=== PATIENT | male | born 1965 | race Caucasian/White ===

== ENCOUNTER 2019-12-04 09:02 | Outpatient (CLI) | payer OTHER, SELFPAY ==
--- NOTE | 2019-12-04 09:36 | XRR_ITS ---
PROCEDURE INFORMATION: Exam: XR Right Knee Exam date and time: 12/04/2019 9:57 AM Age: 54 years old Clinical indication: Right; Patient HX: Chronic right knee pain; Additional info: R knee pain TECHNIQUE: Imaging protocol: XR Right knee. Views: Frontal and lateral views. COMPARISON: No relevant prior studies available. FINDINGS: Bones/joints: Normal. Soft tissues: Normal. Other findings: e XR/XR knee RT 1-2V [id number] IMPRESSION: No acute findings.
--- NOTE | 2019-12-04 09:36 | XRR_ITS ---
PROCEDURE INFORMATION: Exam: XR Lumbosacral Spine, 2 or 3 Views Exam date and time: 12/04/2019 9:57 AM Age: 54 years old Clinical indication: Patient HX: C/O chronic low back pain TECHNIQUE: Imaging protocol: XR of the lumbosacral spine, 3 views. Other technique: AP, lateral and spot lateral views of the lumbar spine are submitted. COMPARISON: No relevant prior studies available. FINDINGS: Vertebrae: Lumbar spine vertebral body marginal osteophytes are noted at multiple levels. No acute fracture.No destructive bony process identified. Soft tissues: Unremarkable. XR/XR lumbar spine 2-3V* [id number] IMPRESSION: 1. Degenerative changes as above. 2. No acute lumbar spinal bony abnormality identified.
== END 2019-12-04 09:03 | disposition home or self-care (01) ==
PROVIDERS: PCP Family Medicine; Visit Provider Family Medicine
DX: M54.9 Dorsalgia, unspecified (principal); M25.561 Pain in right knee
CPT/HCPCS: 72100; 73560

== ENCOUNTER 2020-03-24 09:53 | Outpatient (CLI) | payer OTHER, SELFPAY ==
--- NOTE | 2020-03-24 10:03 | XR_ITS ---
WS: [id number] TECHNIQUE: 2 views of the left hand CLINICAL INFORMATION: ARTHRITIS COMPARISON: None. FINDINGS: Normal metacarpals. Normal MCP joint. Metacarpal heads are normal in appearance. Mild degenerative na rrowing involving the fifth PIP joint. IP joints are otherwise well preserved. Radiocarpal joint: Mild narrowing Carpal bones: Normal. Tiny radiopaque foreign body overlying the fourth middle phalanx. Additional foreign body in the dors al hand soft tissues between the second third metacarpal XR/XR hand LT 2V [id number] IMPRESSION: Mild degenerative arthritis left hand described above.
--- NOTE | 2020-03-24 10:03 | XR_ITS ---
WS: [id number] TECHNIQUE: 2 views of the right hand CLINICAL INFORMATION: ARTHRITIS COMPARISON: None. FINDINGS: Normal metacarpals. Normal MCP joint. Metacarpal heads are normal in appearance. Mild degenerative ar thritis IP joint narrowing involving the third fourth and fifth PIP and DIP joints. Radiocarpal joint: Mild narrowing Carpal bones: Normal. XR/XR hand RT 2V [id number] IMPRESSION: Mild degenerative arthritis as described above
== END 2020-03-24 09:54 | disposition home or self-care (01) ==
LOC: RAD 09:59
PROVIDERS: PCP Family Medicine; Visit Provider Dermatology
DX: Z02.71 Encounter for disability determination (principal); M19.042 Primary osteoarthritis, left hand; M19.041 Primary osteoarthritis, right hand
CPT/HCPCS: 73120

== ENCOUNTER → 2020-11-25 10:05 | Outpatient (BNVA) | payer OTHER, SELFPAY | PROVIDERS: PCP Family Medicine; Visit Provider Psychiatry & Neurology Psychiatry | DX: F41.1 Generalized anxiety disorder (principal); F33.42 Major depressive disorder, recurrent, in full remission; Z79.899 Other long term (current) drug therapy | CPT/HCPCS: 80061; 83036 ==

== ENCOUNTER 2020-11-30 17:27 | Inpatient (IN) | payer MEDICAID, SELFPAY ==
[2020-11-30 17:31] VITALS: BP 158/101; PULSE 82; RESP 18; O2SAT 97; BMI 33.6
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
[2020-11-30 18:18] LABS: Add Urine Microscopic? NO; Charge for UA Resulting for Rev
[2020-11-30 18:19] LABS: Bilirubin Urine Neg (Negative); Blood Urine Neg (Negative); Glucose Urine UA Norm (Normal); Ketones Urine Negative (Negative); Leukocyte Esterase Urine Negative (Negative); Nitrate Urine Negative (Negative); Protein Urine Neg (Negative); Urine Appearance Clear (CLEAR); Urine Color Yellow (Yellow); Urobilinogen Urine Norm (Negative); pH Urine 5 (5-7)
[2020-11-30 18:28] LABS: Amphetamines Screen Urine Negative (Negative); Barbiturates Screen Urine Negative (Negative); Benzodiazepines Screen Urine Negative (Negative); Cocaine Screen Urine Negative (Negative); Opiate Screen Urine Negative (Negative); PCP Screen Urine Negative (Negative); THC Screen Urine Negative (Negative)
[2020-11-30 19:34] LABS: Basophils # 0.1 10^3/uL (0.0-0.1); Basophils % 0.6 %; Eosinophils # 0.2 10^3/uL (0.0-0.8); Eosinophils % 1.9 %; Hematocrit 44.3 % (42.0-52.0); Hemoglobin 14.7 g/dL (11.7-16.6); Lymphocytes # 2.3 10^3/uL (0.8-4.8); Lymphocytes % 23.2 %; Mean Corpuscular HGB Conc 33.2 g/dL (30.0-36.0); Mean Corpuscular Hemoglobin 30.3 pg (28.0-34.0); Mean Corpuscular Volume 91.3 fL (80-94); Mean Platelet Volume 10.1 fL (7.4-10.4); Monocytes # 0.5 10^3/uL (0.2-0.9); Monocytes % 5.5 %; Neutrophils # 6.71 10^3/uL (1.8-7.7); Neutrophils % 68.5 %; Nucleated Red Blood Cells % 0 %; Platelet Count 221 10^3/cmm (130-400); Red Blood Count 4.85 10^6/uL (4.1-5.3); Red Cell Distribution Width 14.1 % (12.1-15.1); White Blood Count 9.8 10^3/uL (4.0-10.0)
[2020-11-30 19:55] LABS: Alanine Aminotransferase 19 U/L (0-41); Albumin Level 4.6 g/dL (3.5-5.2); Alcohol Level 166 mg/dL (0-10); Alkaline Phosphatase 65 IU/L (40-130); Aspartate Amino Transferase 31 U/L (0-40); Blood Urea Nitrogen 5 mg/dL (6-20); Calcium 8.7 mg/dL (8.5-10.5); Carbon Dioxide 16 mmol/L (22-29); Chloride 100 mmol/L (98-107); Globulin 3.8 g/dL (1.3-4.6); Glucose 96 mg/dL (65-115); Osmolality Calculated 275 mOsm/kg (285-295); Sodium 134 mmol/L (136-145); Total Bilirubin 0.8 mg/dL (0.15-1.2); Total Protein 8.4 g/dL (6.6-8.7)
[2020-11-30 19:56] LABS: Acetaminophen < 5.0 ug/mL (10-30); Salicylate < 0.3 mg/dL (3-10)
[2020-11-30 22:15] VITALS: BP 146/94; PULSE 73; RESP 18; TEMP 36.8; O2SAT 95
[2020-11-30 22:20] VITALS: BP 136/94; PULSE 70; RESP 16; O2SAT 98
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
[2020-11-30] MEDS: trazodone 50 mg Tablet PO (22:51)
[2020-11-30] MEDS: acetaminophen 325 mg Tablet 650 MG PO (22:54)
[2020-12-01 06:00] VITALS: BP 143/85; PULSE 84; RESP 15; TEMP 36.8; O2SAT 95
[2020-12-01] MEDS: folic acid 1 mg Tablet PO (08:34)
[2020-12-01] MEDS: thiamine 100 mg Tablet PO (08:34)
[2020-12-01] MEDS: multivitamin therapeutic Tablet 1 TAB PO (08:34)
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
--- NOTE | 2020-12-01 13:50 | PC.NURSE ---
Patient came to the nurses station requesting Tylenol for his headache. Rates pain 5/10. PRN Tylenol administered.
[2020-12-01] MEDS: fluoxetine 20 mg Capsule 40 MG PO (13:58)
[2020-12-01] MEDS: acetaminophen 325 mg Tablet 650 MG PO ×2 (13:58→20:44)
[2020-12-01 14:00] VITALS: BP 145/100; PULSE 74; RESP 16; TEMP 37.9; O2SAT 96
[2020-12-01] MEDS: trazodone 50 mg Tablet PO (20:44)
[2020-12-01 22:00] VITALS: BP 148/100; PULSE 59; RESP 18; TEMP 36.9; O2SAT 94
[2020-12-02 06:00] VITALS: BP 139/80; PULSE 59; RESP 18; TEMP 36.8; O2SAT 94
[2020-12-02] MEDS: fluoxetine 20 mg Capsule 40 MG PO (08:29)
[2020-12-02] MEDS: multivitamin therapeutic Tablet 1 TAB PO (08:29)
[2020-12-02] MEDS: folic acid 1 mg Tablet PO (08:29)
[2020-12-02] MEDS: thiamine 100 mg Tablet PO (08:29)
--- NOTE | 2020-12-02 10:21 | PM.NDC ---
Diagnoses at Discharge Discharge Diagnosis (1) Alcohol intoxication: Status: Acute (2) Depression: Status: Acute Qualifiers: Active/Remission status: currently active Depression Type: major depressive disorder Major depression episode severity: severe Major depression recurrence: recurrent Psychotic features: without psychotic features Qualified Code(s): F33.2 - Major depressive disorder, recurrent severe without psychotic features (3) Alcohol dependence, continuous: Status: Acute (4) Generalized anxiety disorder: Status: Acute Reason for Visit Reason for Visit: ETOH; ANGER; ANXIETY Hospital Course Hospital Course 55 year old male presented to the emergency department for irritability, anger, depressive symptoms in the context of feeling betrayed by his girlfriend who had allowed a stranger to stay in their trailer while he was being taken away by police after an argument with the stranger. Patient was denying any suicidal ideation and no active depressive symptoms at the time of initial evaluation but reported his frustration about his current situation. Patient was restarted on his home medication with no reports of any medication side effects. Patient reports that he had been decreasing the amount of his alcohol use but continues to report drinking a minimum of 4-5 beers daily but occasionally more. Patient participate in unit milieu with no reports of any behavioral disturbances. Patient was not suicidal or homicidal at the time of discharge and did not endorse any psychiatric symptoms and did not appear to pose an imminent threat of harm to self or others. Low to moderate risk of harm to self and others given no current suicidal or homicidal ideation and no current endorsement of any psychiatric symptoms although patient's risk may be elevated if he continues to abuse alcohol leading to unexpected, impulsive behavior. Risk mitigation included psychiatric hospitalization, restarting medication for medication stabilization, recommendation to abstain from the use of alcohol and any substances as well as the need for post discharge substance counseling/treatment in addition to being compliant with his medication and medication management follow-up. Patient communicated his understanding of the above discharge recommendations to include abstaining from the use of alcohol and other substances as well as the need for ongoing counseling targeting the development of more adaptive coping strategies in order to further mitigate his risk of harm to self and others. Involuntary Hold Information 96 Hour Hold: 96 Hour Involuntary Admission: No Mental Status Exam MSE Comments: Sitting in the day room appropriately groomed and dressed, calm, cooperative, good eye contact Psychomotor activity is neither increased nor decreased, no agitation Speech is normal rate and volume, spontaneous, fair articulation, not pressured I feel good, congruent affect, not labile Alert and oriented to person, place, time, situation Memory and concentration appear to be intact per interview Thought process, linear, no flight of ideas Thought content, no delusions, no hallucinations, no suicidal or homicidal ideation Insight and judgment appear to be fair to intact Discharge Data Vitals: Last Vital Signs Temp 98.2 F 12/02/20 06:00 Pulse 59 L 12/02/20 06:00 Resp 18 12/02/20 06:00 BP 139/80 12/02/20 06:00 Pulse Ox 94 12/02/20 06:00 Discharge Plan Discharge Patient Disposition: Home Condition: Stable Prescriptions: New Vitamin B-1 (mononitrate) 100 mg Tablet 100 mg PO DAILY 30 Days RF: 0 Continued Tylenol Extra Strength 500 mg Tablet 1,500 mg PO PRN RF: 0 fluoxetine 40 mg capsule 40 mg PO DAILY RF: 0 trazodone 150 mg tablet 150 mg PO BEDTIME RF: 0 Discharge Orders: Discharge Order (Routine); Ordered 12/02/20 Ordered By: Malorie Pride Referrals: [facility] [Outside] - 12/09/20 8:30 am (Dr Almaguer over the phone) [facility] [Outside] Discharge Diet: Regular Discharge Activity: Resume usual activity Patient Instructions: Opioid Safety Discharge Attestations NPU Time Spent in Discharge Care*: greater than 30 min Status at Discharge: Cognitive status at discharge: cognitively intact, Behavioral status at discharge: cooperative, Functional status at discharge: independent ambulation Overall status at discharge: patient is back to baseline Coding Level of Care Code Acute g [facility] note Diagnoses Alcohol intoxication F10.929 Depression F33.2 Active/Remission status: currently active Depression Type: major depressive disorder Major depression episode severity: severe Major depression recurrence: recurrent Psychotic features: without psychotic features Alcohol dependence, continuous F10.20 Generalized anxiety disorder F41.1
[2020-12-02 10:44] VITALS: BP 139/80; PULSE 59; RESP 18; TEMP 36.8; O2SAT 94
== END 2020-12-02 11:50 | disposition home or self-care (01) | DRG 885 ==
LOC: ER 19:57 → NP 21:55
PROVIDERS: Admitting Provider Psychiatry & Neurology Psychiatry; Emergency Provider Family Medicine; PCP Family Medicine; Visit Provider Psychiatry & Neurology Psychiatry
DX: F33.2 Major depressive disorder, recurrent severe without psychotic features (principal); F41.1 Generalized anxiety disorder; F10.229 Alcohol dependence with intoxication, unspecified; Y90.6 Blood alcohol level of 120-199 mg/100 ml; R45.850 Homicidal ideations; Z63.0 Problems in relationship with spouse or partner
CPT/HCPCS: 80053; 80306; 80307; 81003; 85025; 99285

== ENCOUNTER 2021-04-13 06:00 | Outpatient (RCR) | payer SELFPAY ==
[2020-12-01 14:53] VITALS: BP 142/84; BMI 35.0
== END 2021-04-21 23:59 | disposition home or self-care (01) ==
LOC: SPT 06:00
PROVIDERS: PCP Family Medicine Adult Medicine; Referring Provider Family Medicine Adult Medicine; Visit Provider Family Medicine Adult Medicine
DX: M25.512 Pain in left shoulder (principal); M25.511 Pain in right shoulder; M15.9 Polyosteoarthritis, unspecified; S16.1XXD Strain of muscle, fascia and tendon at neck level, subsequent encounter; X50.3XXD Overexertion from repetitive movements, subsequent encounter
CPT/HCPCS: 97162

== ENCOUNTER 2021-04-22 06:00 | Outpatient (RCR) | payer OTHER, MEDICAID, SELFPAY ==
[2020-12-01 14:53] VITALS: BP 142/84; BMI 35.0
== END 2021-05-22 23:59 | disposition home or self-care (01) ==
LOC: SPT 06:00
PROVIDERS: PCP Family Medicine Adult Medicine; Referring Provider Family Medicine Adult Medicine; Visit Provider Family Medicine Adult Medicine
DX: M15.9 Polyosteoarthritis, unspecified (principal); M25.512 Pain in left shoulder; M25.511 Pain in right shoulder; X50.3XXA Overexertion from repetitive movements, initial encounter; S16.1XXA Strain of muscle, fascia and tendon at neck level, initial encounter
CPT/HCPCS: 97110

== ENCOUNTER 2021-05-23 06:00 | Outpatient (RCR) | payer MEDICAID, SELFPAY ==
[2020-12-01 14:53] VITALS: BP 142/84; BMI 35.0
== END 2021-06-22 23:59 | disposition home or self-care (01) ==
LOC: SPT 06:00
PROVIDERS: PCP Family Medicine Adult Medicine; Referring Provider Family Medicine Adult Medicine; Visit Provider Family Medicine Adult Medicine
DX: M15.9 Polyosteoarthritis, unspecified (principal); M25.512 Pain in left shoulder; M25.511 Pain in right shoulder; X50.3XXA Overexertion from repetitive movements, initial encounter; S16.1XXA Strain of muscle, fascia and tendon at neck level, initial encounter; X58.XXXA Exposure to other specified factors, initial encounter
CPT/HCPCS: 97110

== ENCOUNTER → 2021-05-28 08:35 | Outpatient (BNVA) | payer MEDICAID, SELFPAY ==
[2020-12-01 14:53] VITALS: BP 142/84; BMI 35.0
== END ==
PROVIDERS: PCP Family Medicine Adult Medicine; Visit Provider Psychiatry & Neurology Psychiatry
DX: F33.42 Major depressive disorder, recurrent, in full remission (principal); F41.1 Generalized anxiety disorder; F10.20 Alcohol dependence, uncomplicated
CPT/HCPCS: 99214

== ENCOUNTER → 2021-07-30 14:51 | Outpatient (BNVA) | payer MEDICAID, SELFPAY ==
[2020-12-01 14:53] VITALS: BP 142/84; BMI 35.0
== END ==
PROVIDERS: PCP Family Medicine Adult Medicine; Visit Provider Family Medicine Adult Medicine
DX: M25.512 Pain in left shoulder (principal)
CPT/HCPCS: 73030

== ENCOUNTER → 2021-09-03 09:30 | Outpatient (BNVA) | payer MEDICAID, SELFPAY ==
[2020-12-01 14:53] VITALS: BP 142/84; BMI 35.0
== END ==
PROVIDERS: PCP Family Medicine Adult Medicine; Visit Provider Psychiatry & Neurology Psychiatry
DX: F33.42 Major depressive disorder, recurrent, in full remission (principal); F41.1 Generalized anxiety disorder; F10.20 Alcohol dependence, uncomplicated
CPT/HCPCS: 99214

== ENCOUNTER 2021-10-07 23:19 | Emergency (ER) | payer MEDICAID, SELFPAY ==
[2020-12-01 14:53] VITALS: BP 142/84; BMI 35.0
--- NOTE | 2021-10-07 23:20 | W.ED.SOB ---
HPI - SOB/Dyspnea General: Chief Complaint: Shortness of Breath/Dyspnea Stated Complaint: SOB Time Seen by Provider: 10/07/21 23:20 History of Present Illness: HPI Narrative: Mr Rivera is a 56-year-old gentleman with history of alcohol abuse presenting to the emergency department due to shortness of breath. He endorses chronic cough for a number of months however over the past 3 to 4 days has become more productive and today he had marked shortness of breath with exertion while he was getting ready for bed. He denies similar episodes in the past. He denies history of tobaccoism. Overall intensity of symptoms was moderate to severe. Course is now improved after EMS treatment. He does endorse new environmental exposure with his cat. No other specific changes in health, exacerbating, or alleviating factors identified. Onset (ago): day(s) Timing: progressively worsening Severity: moderate Treatment prior to arrival: bronchodilator Review of Systems General: Reports: 10 or more systems reviewed and unremarkable except in HPI and below PFSH ED PFSH: Medical History Alcohol use disorder, severe, dependence Generalized anxiety disorder GERD (gastroesophageal reflux disease) Muscle strain of shoulder region Osteoarthritis involving multiple joints on both sides of body Participant in health and wellness plan Psychiatric care Repetitive strain injury of neck Severe dental caries Shoulder pain, left Tinea corporis Family History Father Diabetes started at age 72 Social History Smoking and tobacco status: never smoked Alcohol intake: current Alcohol intake frequency: few times a month Marital status: Life Partner Number of children: 1 Number of grandchildren: 1 Current occupational status: unemployed and disabled Physical Exam Const: COMMON NORMALS: alert GENERAL APPEARANCE: cooperative and well developed HENMT: COMMON NORMALS: normocephalic and atraumatic HEAD & SCALP: normocephalic and atraumatic Eye: COMMON NORMALS: conjunctivae normal CONJUNCTIVA: Yes conjunctivae normal SCLERA: sclerae normal Neck/C-Spine: COMMON NORMALS: supple GENERAL: Yes trachea midline Resp: EFFORT & INSPECTION: Yes able to speak in complete sentences AUSCULTATION: diminished lung sounds Cardio: COMMON NORMALS: regular rate and regular rhythm RATE: regular rate RHYTHM: regular rhythm GI: COMMON NORMALS: Soft to palpation PALPATION: Yes Soft to palpation and No Tenderness to palpation present (GI) PERCUSSION: normal to percussion Extremity: GENERAL: Yes normal exam except as noted and No edema Neuro: COMMON NORMALS: moves all extremities SENSORIUM/ORIENTATION: Yes alert and No Orientation impaired Psych: COMMON NORMALS: mental status grossly normal and Normal thought process present THOUGHT PROCESS: Normal thought process present Course ED course: - Patient was seen and evaluated by me at bedside - Patient placed on cardiac monitors, IV access obtained - Initial evaluation notable for exam as above - Labs and xrays personally interpreted by me -RT treatment ordered. Antibiotic dose here ordered. Fluids ordered - Labs notable for no leukocytosis, normal hemoglobin. ABG with mild hypoxemia. Metabolic panel with evidence of dehydration. Delta troponin is negative. D-dimer mildly elevated. COVID test negative for - Imaging notable for bibasilar opacities, no pneumothorax. CT angio without evidence of pulmonary embolism. - Upon serial reexamination after treatment the patient was improved - Based on patient history, evaluation, and testing as interpreted the most likely cause of the patient's condition is dehydration and shortness of breath with likely exacerbation of underlying lung disease/atypical pneumonia - The results of ED evaluation were discussed with the patient including prescriptions and/or symptomatic cares (if applicable) including appropriate and responsible use, followup plan, and return precautions. The patient verbalized understanding and felt safe for discharge. - Patient discharged in satisfactory condition. Note: Click bubbles or prepopulated brar in note writing are used for assistance with data collection and billing and are inherently more limited than narrative and other text portions of this note. Please use narrative for additional clinical history and defer to narrative/free test for any case of contradictory information. If information appears in only free text or click bubble it should be considered present or absent as reported. Please contact note grant writer for clarifications of clinical information or contradictory information. MDM is a brief summary, contradictory or erroneous seeming information should be clarified and full note should be reviewed. Vital Signs: Vital signs: Vital Signs Temperature 97.7 F 10/07/21 23:21 Pulse Rate 69 10/08/21 04:21 Respiratory Rate 15 10/08/21 04:21 Blood Pressure 112/58 10/08/21 04:21 Pulse Oximetry 95 10/08/21 04:21 MDM - SOB/Dyspnea Medical Decision Making 56-year-old gentleman presenting with shortness of breath. No acute pathology identified on ED evaluation. Improved with treatment. Satisfactory for outpatient management. Medical Records I reviewed the patient's medical records. Lab Data I reviewed the patient's lab results. : 10/07/21 23:02 10/07/21 23: Labs/Radiology: Radiology Impressions Chest X-Ray 10/07/21 23:28 IMPRESSION: 1. Cardiomegaly. 2. Bilateral hilar lower lobe atelectasis versus infiltrate. Chest CTA 10/08/21 01:08 IMPRESSION: No pulmonary embolus or other acute pathology in the chest. Laboratory Results WBC 7.8 10^3/uL (4.0-10.0) 10/07/21: RBC 4.09 10^6/uL (4.1-5.3) L 10/07/21: Hgb 12.8 g/dL (11.7-16.6) 10/07/21: Hct 38.0 % (42.0-52.0) L 10/07/21: MCV 92.9 fl (80-94) 10/07/21: MCH 31.3 pg (28.0-34.0) 10/07/21: MCHC 33.7 g/dL (30.0-36.0) 10/07/21 23: RDW 13.7 % (12.1-15.1) 10/07/21: Plt Count 190 10^3/cmm (130-400) 10/07/21: MPV 11.0 fL (7.4-10.4) H 10/07/21: Neut % (Auto) 44.2 % 10/07/21 23: Lymph % (Auto) 39.9 % 10/07/21: [place] % (Auto) 8.8 % 10/07/21: Eos % (Auto) 6.0 % 10/07/21: Baso % (Auto) 0.8 % 10/07/21: Neut # (Auto) 3.45 10^3/uL (1.8-7.7) 10/07/21: Lymph # (Auto) 3.1 10^3/uL (0.8-4.8) 10/07/21 23: [place] # (Auto) 0.7 10^3/uL (0.2-0.9) 10/07/21 23: Eos # (Auto) 0.5 10^3/uL (0.0-0.8) 10/07/21 23: Baso # (Auto) 0.1 10^3/uL (0.0-0.1) 10/07/21 23: Nucleated RBC % (auto) 0 % 10/07/21 23: Nucleated RBCs # 0.0 /100WBC 10/07/21 23: D-Dimer 0.70 ug/mIFEU (0-0.59) H 10/07/21: Specimen Type Arterial 10/07/21: Sample Site Radial, left 10/07/21: ABG pH 7.37 (7.35-7.45) 10/07/21: ABG pCO2 39.8 mmHg (35-45) 10/07/21: ABG pO2 69.3 mmHg (80.0-100.0) L 10/07/21: ABG HCO3 22.9 mmol/L (22-26) 10/07/21: ABG Base Excess -2.2 mmol/L (-2.0-2.0) L 10/07/21: [place] Test Pos 10/07/21: Hematocrit 39.4 % (42-52) L 10/07/21: Hgb O2 Saturation 90.7 % (95-100) L 10/07/21: Carboxyhemoglobin 1.5 %THgb (0.4-20.1) 10/07/21: Methemoglobin 1.0 % (0.4-1.5) 10/07/21: Total Hemoglobin 12.8 g/dL (14-18) L 10/07/21: O2 Delivery Device None 10/07/21: FiO2 21.0 % 10/07/21 23: Income Tax Return Preparer ID [place] 10/07/21 23: Sodium 128 mmol/L (136-145) L 10/07/21:02 Potassium 3.6 mmol/L (3.5-5.1) 10/07/21 23:02 Chloride 92 mmol/L (98-107) L 10/07/21 23:02 Carbon Dioxide 21 mmol/L (22-29) L 10/07/21 23:02 Anion Gap 18.6 (5-19) 10/07/21 23:02 BUN 10 mg/dL (6-20) 10/07/21 23:02 Creatinine 0.8 mg/dL (0.7-1.2) 10/07/21 23:02 GFR Calculation 100.7 mL/min (90-130) 10/07/21 23:02 Glucose 94 mg/dL (65-115) 10/07/21 23:02 Calculated Osmolality 265 mOsm/kg (285-295) L 10/07/21 23:02 Lactic Acid 1.7 mmol/L (0.5-2.2) 10/07/21 23:53 Calcium 8.6 mg/dL (8.5-10.5) 10/07/21 23:02 Total Bilirubin 0.6 mg/dL (0.15-1.2) 10/07/21 23:02 AST 44 U/L (0-40) H 10/07/21 23:02 ALT 33 U/L (0-41) 10/07/21 23:02 Alkaline Phosphatase 56 IU/L (40-130) 10/07/21 23:02 Troponin T Baseline 6 ng/L (0-15) 10/07/21 23:02 Troponin T 120 Minute 6.00 ng/L (0-15) 10/08/21 00:44 Delta Troponin T 0 ABS# (0-10) 10/08/21 00:44 C-Reactive Protein 3.0 mg/L (0.0-4.9) 10/08/21 00:44 NT-Pro-B Natriuret Pep 85 pg/mL (0-125) 10/07/21 23:02 Total Protein 7.6 g/dL (6.6-8.7) 10/07/21 23:02 Albumin 4.5 g/dL (3.5-5.2) 10/07/21 23:02 Globulin 3.1 g/dL (1.3-4.6) 10/07/21 23:02 Procalcitonin 0.12 ng/mL (0-0.5) 10/08/21 00:44 Coronavirus 229E (PCR) Not detected (NOT DETECT) 10/07/21 23:50 SARS-CoV-2 (PCR) Not detected (NOT DETECT) 10/07/21 23:50 Discharge Plan Discharge Patient Disposition: Home Clinical Impression: Shortness of breath, Dehydration Condition: Stable Prescriptions: New doxycycline hyclate 100 mg tablet 100 mg PO BID 10 Days Qty: 20 0RF albuterol sulfate 90 mcg/actuation HFA aerosol inhaler 2 inh inhalation Q4H PRN (Reason: shortness of breath or wheezing) Qty: 8.5 0RF cetirizine 10 mg tablet 10 mg PO DAILY Qty: 30 0RF No Action clotrimazole-betamethasone 1-0.05 % cream 1 applic topical BID Qty: 15 0RF Rx Instructions: Apply to left lower leg affected area twice a day trazodone 150 mg tablet 150 mg PO BEDTIME Qty: 30 11RF fluoxetine 40 mg capsule 40 mg PO DAILY Qty: 30 11RF acamprosate 333 mg tablet,delayed release (DR/EC) See Rx Instructions .ROUTE .COMPLEX Qty: 90 11RF Rx Instructions: Take 2 tablets in the morning and 1 tablet at night. meloxicam 7.5 mg tablet 7.5 mg PO BIDWMEAL Qty: 30 3RF Rx Instructions: 1 tablet twice a day with food. methocarbamol 750 mg tablet See Rx Instructions .ROUTE .COMPLEX Qty: 60 1RF Dose Instruction: TAKE 1 TABLET BY MOUTH THREE TIMES DAILY FOR MUSCLE SPASM Rx Instructions: TAKE 1 TABLET BY MOUTH THREE TIMES DAILY FOR MUSCLE SPASM Tylenol Extra Strength 500 mg Tablet 1,500 mg PO PRN 0RF Discharge Orders: Discharge ED (Routine); Ordered 10/08/21 Ordered By: Nash Benjamin Referrals: Harshil Mcgovern MD [Primary Care Provider] - Discharge Diet: Usual diet Discharge Activity: Increase activity as tolerated Patient Instructions: Dehydration (ED), Shortness of Breath (ED) Activity Restrictions/Additional Instructions: Thank you for visiting the emergency department. You were seen and evaluated for shortness of breath. The exact cause of your symptoms is unclear. Initially on chest x-ray it appeared that you have mild pneumonia however on CT scan this is not seen. This may be related to increased inflammation secondary to allergies. He will be given a prescription for antibiotics in case there is atypical infection, steroids, and an inhaler. Additionally for possible allergic reaction we will prescribe cetirizine. Please follow-up with your primary care provider. Please return to the emergency department for worsening symptoms or anything else that you are concerned about a family needs emergency department evaluation. Coding Level of Care Code ED [employer] Engineer for Manuel Matthew
[2021-10-07 23:21] VITALS: BP 115/72; PULSE 65; RESP 17; TEMP 36.5; O2SAT 94; BMI 37.5
--- NOTE | 2021-10-07 23:28 | XRR_ITS ---
PROCEDURE INFORMATION: Exam: XR Chest Exam date and time: 10/07/2021 11:39 PM Age: 56 years old Clinical indication: Cough and shortness of breath; Patient HX: C/O cough with SOB x several days TECHNIQUE: Imaging protocol: XR of the chest. Views: 1 view. COMPARISON: CR Chest 1 [place] [id number] 01/25/2019 11:39 PM FINDINGS: Lungs: Bilateral hilar lower lobe atelectasis versus infiltrate. Pleural spaces: Unremarkable. No pleural effusion. No pneumothorax. Heart/Mediastinum: Cardiomegaly. Bones/joints: Unremarkable. XR/XR chest 1V portable [id number] IMPRESSION: 1. Cardiomegaly. 2. Bilateral hilar lower lobe atelectasis versus infiltrate.
--- NOTE | 2021-10-07 23:28 | PC.NURSE ---
Pt reports drinking 15 beers today and is a chronic alcoholic.
--- NOTE | 2021-10-07 23:29 | ECG_ITS ---
[facility] Test Date: 2021-10-07 Pat Name: Jose Rivera Department: Room: Gender: Male House Wirer: : 1965 Requested By: Nash Benjamin Order Number: [id number] Berta MD: Michael Rodríguez M.D. Measurements Intervals Drew Rate: 63 P: 42 TX: 180 QRS: 60 QRSD: 96 T: 51 QT: 409 QTc: 420 Interpretive Statements SINUS RHYTHM Compared to ECG 01/25/2019 22:47:00 No significant changes Electronically Signed On 10-08-2021 17:19:12 CDT by Michael Rodríguez M.D. [email or web address]
[2021-10-07 23:38] LABS: ABG PCO2 39.8 mmHg (35-45); ABG PH Result 7.37 (7.35-7.45); Arterial Blood Gas Hematocrit 39.4 % (42-52); Base Excess ABG -2.2 mmol/L (-2.0-2.0); Blood Gas Allen Test Pos; Blood Gas Operator Identificat WALCI; Blood Gas Sample Site Radial, left; Blood Gas Sample Type Arterial; Carboxyhemoglobin 1.5 %THgb (0.4-20.1); HCO3 ABG 22.9 mmol/L (22-26); HGB O2 Sat 90.7 % (95-100); PO2 ABG 69.3 mmHg (80.0-100.0); Total Hemoglobin 12.8 g/dL (14-18)
[2021-10-07 23:42] VITALS: PULSE 65; RESP 16; O2SAT 95
[2021-10-07] MEDS: ipratropium-albuterol 3 mL Neb INHALATION (23:42)
[2021-10-07 23:46] VITALS: PULSE 61
[2021-10-07 23:56] LABS: Basophils # 0.1 10^3/uL (0.0-0.1); Basophils % 0.8 %; Eosinophils # 0.5 10^3/uL (0.0-0.8); Hemoglobin 12.8 g/dL (11.7-16.6); Lymphocytes # 3.1 10^3/uL (0.8-4.8); Lymphocytes % 39.9 %; Mean Corpuscular HGB Conc 33.7 g/dL (30.0-36.0); Mean Corpuscular Hemoglobin 31.3 pg (28.0-34.0); Mean Corpuscular Volume 92.9 fl (80-94); Monocytes # 0.7 10^3/uL (0.2-0.9); Monocytes % 8.8 %; Neutrophils # 3.45 10^3/uL (1.8-7.7); Neutrophils % 44.2 %; Nucleated Red Blood Cells % 0 %; Platelet Count 190 10^3/cmm (130-400); Red Blood Count 4.09 10^6/uL (4.1-5.3); Red Cell Distribution Width 13.7 % (12.1-15.1); White Blood Count 7.8 10^3/uL (4.0-10.0)
[2021-10-08] VITALS (8 sets, daily range): BP systolic 84–112; BP diastolic 44–65; PULSE 57–77; RESP 15–21; O2SAT 91–95
[2021-10-08] LABS: Troponin(5th) Baseline 6 ng/L (0-15)
[2021-10-08 00:08] LABS: Alanine Aminotransferase 33 U/L (0-41); Albumin Level 4.5 g/dL (3.5-5.2); Alkaline Phosphatase 56 IU/L (40-130); Anion Gap 18.6 (5-19); Aspartate Amino Transferase 44 U/L (0-40); Blood Urea Nitrogen 10 mg/dL (6-20); Calcium 8.6 mg/dL (8.5-10.5); Carbon Dioxide 21 mmol/L (22-29); Chloride 92 mmol/L (98-107); Globulin 3.1 g/dL (1.3-4.6); Glomerular Filtration Rate 100.7 mL/min (90-130); Glucose 94 mg/dL (65-115); NT Pro B Type Natriuretic Pept 85 pg/mL (0-125); Osmolality Calculated 265 mOsm/kg (285-295); Potassium 3.6 mmol/L (3.5-5.1); Sodium 128 mmol/L (136-145); Total Bilirubin 0.6 mg/dL (0.15-1.2); Total Protein 7.6 g/dL (6.6-8.7)
[2021-10-08 00:15] LABS: Lactic Sepsis W/Reflex 1.7 mmol/L (0.5-2.2)
[2021-10-08] MEDS: sodium chloride 0.9% 1,000 ML 999 ML IV ×2 (00:21→02:45)
--- NOTE | 2021-10-08 01:08 | CTR_ITS ---
PROCEDURE INFORMATION: Exam: CTA Chest With Contrast Exam date and time: 10/08/2021 1:34 AM Age: 56 years old Clinical indication: Abnormal findings; Abnormal diagnostic tests; Elevated d-dimer; Cough and shortness of breath; Patient HX: C/O cough with SOB x several days. Hypotensive with elevated d dimer. ; Additional info: SOB, elevated ddimer, hypotension TECHNIQUE: Imaging protocol: Computed tomographic angiography of the chest with contrast. 3D rendering (Not supervised by radiologist): MIP and/or 3D reconstructed images were created by the technologist. Radiation optimization: All CT scans at this facility use at least one of these dose optimization techniques: automated exposure control; mA and/or kV adjustment per patient size (includes targeted exams where dose is matched to clinical indication); or iterative reconstruction. Contrast material: OMNI 350; Contrast volume: 50 ml; Contrast route: INTRAVENOUS (IV); COMPARISON: CTA Chest-[place]ulmonary [place] [id number] 01/26/2019 12:10 AM RADIATION DOSE METRICS: Total DLP (mGy-cm): 574.79 FINDINGS: Pulmonary arteries: Normal. No pulmonary emboli. Aorta: Unchanged mildly ectatic ascending aorta measuring 3.7 cm in diameter. Lungs: Unremarkable. No consolidation. No masses. Pleural spaces: Unremarkable. No pneumothorax. No pleural effusion. Heart: Unremarkable. No cardiomegaly. No pericardial effusion. Lymph nodes: Unremarkable. No enlarged lymph nodes. Bones/joints: Unremarkable. No acute fracture. Soft tissues: Unremarkable. CT/CT angio chest PE protcl [id number] IMPRESSION: No pulmonary embolus or other acute pathology in the chest.
[2021-10-08 01:14] LABS: Troponin 5 2HR Delta 0 ABS# (0-10)
[2021-10-08] MEDS: cefTRIAXone 1,000 MG in sodium chloride 0.9% (plus) 50 ML 100 MG IV (01:14)
[2021-10-08 01:23] LABS: Procalcitonin 0.12 ng/mL (0-0.5)
[2021-10-08] MEDS: iohexol 350 mg/mL 100 mL Btl IV (01:37)
[2021-10-08] MEDS: doxycycline 100 MG in sodium chloride 0.9% (plus) 100 ML IV (01:51)
[2021-10-08 03:59] LABS: Adenovirus Not Detected (NOT DETECT); Chlamydia Pneumoniae Not Detected (NOT DETECT); Coronavirus 229E,HKU1,NL63,OC4 Not Detected (NOT DETECT); Human Metapneumovirus Not Detected (NOT DETECT); Human Rhinovirus/Enterovirus Not Detected (NOT DETECT); Influenza A Not Detected (NOT DETECT); Influenza A H1 Not Detected (NOT DETECT); Influenza A H1-2009 Not Detected (NOT DETECT); Influenza A H3 Not Detected (NOT DETECT); Influenza B Not Detected (NOT DETECT); Mycoplasma Pneumoniae Not Detected (NOT DETECT); Parainfluenza Virus Type 1 Not Detected (NOT DETECT); Parainfluenza Virus Type 2 Not Detected (NOT DETECT); Parainfluenza Virus Type 3 Not Detected (NOT DETECT); Parainfluenza Virus Type 4 Not Detected (NOT DETECT); Respiratory Syncytial Virus A Not Detected (NOT DETECT); Respiratory Syncytial Virus B Not Detected (NOT DETECT); SARS-COV-2 Not Detected (NOT DETECT)
== END 2021-10-08 04:20 | disposition home or self-care (01) ==
PROVIDERS: Emergency Provider Emergency Medicine; PCP Family Medicine Adult Medicine
DX: E86.0 Dehydration (principal); R06.02 Shortness of breath; F10.10 Alcohol abuse, uncomplicated; Z79.891 Long term (current) use of opiate analgesic
CPT/HCPCS: 36600; 71045; 71275; 80053; 82805; 83605; 83880; 84145; 84484; 85025; 85378; 86140; 87040; 87635; 93005; 94640; 96365; 96367; 99285; J0696; J3490; J7030; Q9967

== ENCOUNTER → 2021-11-18 10:08 | Outpatient (BNVA) | payer MEDICAID, SELFPAY ==
[2020-12-01 14:53] VITALS: BP 142/84; BMI 35.0
== END ==
PROVIDERS: PCP Family Medicine Adult Medicine; Visit Provider Psychiatry & Neurology Psychiatry
DX: F33.42 Major depressive disorder, recurrent, in full remission (principal); F41.1 Generalized anxiety disorder; F10.20 Alcohol dependence, uncomplicated; Z79.899 Other long term (current) drug therapy
CPT/HCPCS: 80307; 99215

== ENCOUNTER → 2021-11-26 13:36 | Outpatient (BNVA) | payer MEDICAID, OTHER, SELFPAY ==
[2020-12-01 14:53] VITALS: BP 142/84; BMI 35.0
== END ==
PROVIDERS: PCP Family Medicine Adult Medicine; Visit Provider Psychiatry & Neurology Psychiatry
DX: F41.1 Generalized anxiety disorder (principal); Z79.899 Other long term (current) drug therapy
CPT/HCPCS: 80061; 80306; 83036

== ENCOUNTER → 2022-02-01 09:10 | Outpatient (BNVA) | payer MEDICAID, SELFPAY ==
[2021-12-10 11:47] VITALS: BP 108/67; BMI 35.1
== END ==
PROVIDERS: PCP Family Medicine Adult Medicine; Visit Provider Surgery
DX: K21.9 Gastro-esophageal reflux disease without esophagitis (principal); K92.0 Hematemesis; K62.5 Hemorrhage of anus and rectum
CPT/HCPCS: 99203

== ENCOUNTER 2022-08-04 07:13 | Day surgery (SDC) | payer MEDICAID, SELFPAY ==
[2021-12-10 11:47] VITALS: BP 108/67; BMI 35.1
[2022-07-14 09:30] VITALS: BMI 36.0
[2022-08-02 13:49] VITALS: BMI 35.2
[2022-08-04 07:50] VITALS: BP 131/78; PULSE 50; RESP 16; TEMP 36.7; O2SAT 96
[2022-08-04] MEDS: sodium chloride 0.9% 1,000 ML 30 ML IV (08:10)
--- NOTE | 2022-08-04 10:07 | ANES.PREANE2 ---
Pre-Anesthetic Assessment Height/Weight: Height 1.7 m Weight 102.058 kg Temp Pulse Resp BP Pulse Ox O2 Del Method 98.1 F 50 L 16 131/78 96 08/04/22 07:50 08/04/22 07:50 08/04/22 07:50 08/04/22 07:50 08/04/22 07:50 08/04/22 07:50 Preop Diagnosis: Hematemesis and bleeding per rectum Operation Date: 08/04/22 10:30 Proposed Procedures p 37936 egd, 36499 colon K21.9,K62.5(Not Applicable) - Robbin Reynolds DO s Colonoscopy(Not Applicable) - Robbin Reynolds DO Was Beta Che taken within 24 hours: N/A Was Clonidine taken within 24 hours: N/A Last intake: Intake Last Liquid Date 08/03/22 Last Liquid Time 20:00 Last Solid Date 08/01/22 Last Solid Time 19:00 Social Alcohol and No tobacco Exam alert, oriented x 3, clear to auscultation bilaterally and regular rate & rhythm Airway Submandibular: within normal limits Cervical ROM: within normal limits Mallampati: Class II Comments: Comments: very poor dentition. patient reports tooth pain. denies loose teeth. History/ROS No significant history except as noted and No significant complaints Pulmonary None reported coughing up sputum CV/HEM None reported None reported Hepatic None reported GI Gastroesophageal Reflux Disease vomiting each time he eats Metabolic None reported Musc/skel None reported Neuropsych Anxiety and Depression Anesthetic Plan ASA status: 2 Anesthesia: Anesthesia Evaluation and MAC Risk of > 500 ml blood loss (7ml/kg in children): Yes, adequate IV access and fluids planned Medications/Allergies Home Medications Medication Instructions Recorded Confirmed Last Taken Type fluoxetine 40 mg capsule 40 mg PO DAILY #30 caps 09/03/21 08/04/22 08/01/22 Rx trazodone 150 mg tablet 150 mg PO BEDTIME #30 tabs 09/03/21 08/04/22 08/01/22 Rx albuterol 90 mcg/actuation aerosol 90 mcg inhalation PRN PRN 08/02/22 08/04/22 2 Weeks Ago History inhaler Shortness Of Breath ~07/19/22 pantoprazole 40 mg tablet,delayed 40 mg PO BID 6 weeks #84 tabs 08/04/22 Unknown Rx release (Protonix) Allergies Allergy/AdvReac Type Severity Reaction Status Date / Time No Known Allergies Allergy Verified 08/04/22 07:48 Current Medications Generic Name Dose Route Start Last Admin Trade Name Pacheco PRN Reason Stop Dose Admin Sodium Chloride 1,000 mls @ 30 mls/hr 08/04/22 08:00 08/04/22 08:10 Sodium Chloride 0.9% IV 08/05/22 07:59 30 mls/hr .Q24H ELIJAH Administration PFSH Anesthesia Medical History (Updated 08/04/22 @ 10:29 by Robbin Reynolds DO) Alcohol use disorder, severe, dependence BRBPR (bright red blood per rectum) Generalized anxiety disorder GERD (gastroesophageal reflux disease) Head injury Osteoarthritis involving multiple joints on both sides of body Poverty Psychiatric care Repetitive strain injury of neck Severe dental caries Family History Father Diabetes started at age 72 Heart attack Sister Suicide overdose Sister Suicide Social History Smoking and tobacco status: never smoked Second hand smoke exposure: Yes Alcohol intake: current Alcohol intake frequency: 0-2 Drinks per Day Alcohol type: beer Adopted: No Caregiver/support person: No Lives independently: Yes Household members: friend(s) Marital status: Single Number of children: 1 Number of grandchildren: 1 Highest education level completed: 10th Grade Current occupational status: unemployed and disabled Current occupational exposures/hazards: No Pets and animals: Yes Pets & animals: cat(s) and dog(s) History of recent travel: No Leisure activites: other 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
--- NOTE | 2022-08-04 10:28 | P.HP_ITS ---
Providers/Chief Complaint Chief Complaint: Gastro-esophageal reflux disease w/o esophagitis History of Present Illness Jose Rivera is a 57 year old male who presents for EGD and colonoscopy. He saw my previous partner 6 months ago and scheduled this. He reports that up until a month ago he was having occasional hematemesis and has a lot of indigestion. He does not take anything for it however. He also reports occasional melena. He reports that he day drinks daily. He has never had endoscopy before. Medications/Allergies Home Medications Medication Instructions Recorded Confirmed Last Taken Type fluoxetine 40 mg capsule 40 mg PO DAILY #30 caps 09/03/21 08/04/22 08/01/22 Rx trazodone 150 mg tablet 150 mg PO BEDTIME #30 tabs 09/03/21 08/04/22 08/01/22 Rx albuterol 90 mcg/actuation aerosol 90 mcg inhalation PRN PRN 08/02/22 08/04/22 2 Weeks Ago History inhaler Shortness Of Breath ~07/19/22 Allergies Allergy/AdvReac Type Severity Reaction Status Date / Time No Known Allergies Allergy Verified 08/04/22 07:48 PFSH Acute PFSH: Medical History (Updated 08/04/22 @ 10:29 by Robbin Reynolds DO) Alcohol use disorder, severe, dependence BRBPR (bright red blood per rectum) Generalized anxiety disorder GERD (gastroesophageal reflux disease) Head injury Osteoarthritis involving multiple joints on both sides of body Poverty Psychiatric care Repetitive strain injury of neck Severe dental caries Family History Father Diabetes started at age 72 Heart attack Sister Suicide overdose Sister Suicide Social History Smoking and tobacco status: never smoked Second hand smoke exposure: Yes Alcohol intake: current Alcohol intake frequency: 0-2 Drinks per Day Alcohol type: beer Adopted: No Caregiver/support person: No Lives independently: Yes Household members: friend(s) Marital status: Single Number of children: 1 Number of grandchildren: 1 Highest education level completed: 10th Grade Current occupational status: unemployed and disabled Current occupational exposures/hazards: No Pets and animals: Yes Pets & animals: cat(s) and dog(s) History of recent travel: No Leisure activites: other 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, 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, 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 The patient is understanding of the risks and wishes to proceed. Attestations Medical Necessity Statement*: Home Coding Level of Care Code Acute Code for g Fwd Diagnoses Hematemesis K92.0 Blood per rectum K62.5
[2022-08-04 11:01] VITALS: BP 117/58; PULSE 60; RESP 14; TEMP 36.1; O2SAT 97
[2022-08-04 11:19] VITALS: BP 114/74; PULSE 53; RESP 16; O2SAT 99
[2022-08-04 11:25] VITALS: BP 126/80; PULSE 53; RESP 16; O2SAT 100
--- NOTE | 2022-08-04 15:26 | ANE.PACU2 ---
Inpatient post-anesthesia follow up: Airway intact: Yes Vital signs: Temperature 97 F Pulse Rate 53 Respiratory Rate 16 Blood Pressure 126/80 Pulse Oximetry 100 Oxygen Delivery Me thod Room Air Oxygen Flow Rate Fraction of Inspir ed Oxygen Hydration adequate: Yes Nausea and vomiting: No Pain level: 2 Mental status: Baseline
== END 2022-08-04 11:50 | disposition home or self-care (01) ==
PROVIDERS: Visit Provider Surgery
PROC: 0DJD8ZZ Inspection of Lower Intestinal Tract, Via Natural or Artificial Opening Endoscopic (ICD-10-PCS; CPT 45378; 2022-08-04 10:30)
PROC: 0DJ08ZZ Inspection of Upper Intestinal Tract, Via Natural or Artificial Opening Endoscopic (ICD-10-PCS; CPT 43235; 2022-08-04 10:30)
DX: K92.0 Hematemesis (principal); K29.70 Gastritis, unspecified, without bleeding; K62.5 Hemorrhage of anus and rectum; K21.9 Gastro-esophageal reflux disease without esophagitis
CPT/HCPCS: 43239; 45378; 88305; 88342; J2250; J2704; J7030

== ENCOUNTER → 2022-08-20 15:34 | Outpatient (BNVA) | payer MEDICAID, SELFPAY ==
[2021-12-10 11:47] VITALS: BP 108/67; BMI 35.1
== END ==
PROVIDERS: Visit Provider Surgery
DX: K29.70 Gastritis, unspecified, without bleeding (principal)
CPT/HCPCS: 99024; 99212

== ENCOUNTER 2022-09-04 11:59 | Emergency (ER) | payer MEDICAID, SELFPAY ==
[2021-12-10 11:47] VITALS: BP 108/67; BMI 35.1
[2022-09-04 12:15] VITALS: BP 167/86; PULSE 68; TEMP 36.6; O2SAT 96; BMI 34.4
--- NOTE | 2022-09-04 12:23 | CTR_ITS ---
PROCEDURE INFORMATION: Exam: CT Left Upper Extremity Without Contrast, Elbow Exam date and time: 09/04/2022 1:20 PM Age: 57 years old Clinical indication: Injury or trauma; Fall; Blunt trauma (contusions or hematomas); Elbow; Left; Additional info: Trauma, swelling, unable to straighten elbow TECHNIQUE: Imaging protocol: Computed tomography of the left upper extremity without contrast. Exam focused on the elbow. Radiation optimization: All CT scans at this facility use at least one of these dose optimization techniques: automated exposure control; mA and/or kV adjustment per patient size (includes targeted exams where dose is matched to clinical indication); or iterative reconstruction. REPORTING DATA: Count of CT and Cardiac NM exams in prior 12 months: This patient has received [address] and 0 known cardiac nuclear medicine studies in the 12 months prior to the current study. COMPARISON: CR XR shoulder LT min 2V* [id number] 07/30/2021 2:59 PM RADIATION DOSE METRICS: Total DLP (mGy-cm): 112.83 FINDINGS: Bones/joints: Hypertrophic degenerative bony change is seen about the left elbow common including distal humerus, proximal ulna, and radial head. Foci of ossification are seen anterior laterally at elbow. Mildly irregular appearance with partial linear lucency is seen involving the coronoid process of the ulna concerning for nondisplaced fracture deformity. No definite fracture seen about the posterior olecranon or radial head or distal humerus. Reconstruction images suggest a few tiny calcific densities at the ulnar humeral joint and could indicate tiny loose bodies. Soft tissues: Mild soft tissue swelling. No significant effusion. CT/CT elbow LT wo con* [id number] IMPRESSION: 1. Hypertrophic degenerative bony change noted about the left elbow. 2. Foci of ossifications are seen anterior laterally at the elbow which could indicate synovial osteochondromatosis or other chronic soft tissue ossification. 3. Suspicious appearance of the coronoid process of the ulna for fracture. Follow-up plain film studies.
--- NOTE | 2022-09-04 12:24 | W.ED.EXTPRO ---
HPI - Extremity Problem General: Chief complaint: Extremity Injury, Upper Stated complaint: Left Arm injury Time Seen by Provider: 09/04/22 12:05 History of Present Illness: Patient is a 57-year-old qnaqe-juiy-fctamnsg male that presents to the emergency department with complaints of left elbow pain and inability to flex or extend. He states that he lost control of his tractor yesterday and went through a fence. While going through the fence he struck his left elbow on a metal fence post. Reports that he had immediate pain in the left elbow but was unable to transport himself in. He rested at home and took hikj-lqh-kywvbgo remedies without relief. He arrives today with elbow swelling and inability to perform range of motion. Patient reports chronic bilateral elbow pain and swelling. Patient is neurovascularly intact and has no wounds. Associated symptoms: Deny chest pain, fever(s) or rash Review of Systems General: Reports: 10 or more systems reviewed and unremarkable except in HPI and below Const: Denies: fever(s), chills, change in appetite, change in weight, fatigue or malaise Eyes: Denies: change in vision, eye discomfort, eye discharge or eye redness ENMT: Denies: throat pain, enlarged tonsils, odynophagia, hoarseness, ear or mastoid pain, ear discharge, change in hearing, tinnitus, nasal discharge, nasal congestion, post nasal drip or sinus pain Card: Denies: chest pain, palpitations, irregular heart rhythm, edema, dyspnea on exertion, orthopnea or leg pain with exertion Resp: Denies: dyspnea, productive cough, non-productive cough, wheezing, stridor or chest congestion GI: Denies: abdominal pain, nausea, vomiting, dysphagia, diarrhea, constipation, bloating, GI cramping or hematochezia : Denies: flank pain, dysuria, urinary frequency, urinary urgency, urinary hesitancy, oliguria or hematuria Musc: Denies: neck pain, back pain, extremity pain, joint pain, joint swelling, joint redness, joint warmth or muscle weakness Skin/Breast: Denies: rash, pruritus, erythema, photosensitivity or new lesions Neuro: Denies: headache(s), numbness in extremities, weakness in extremities, sensory changes, lack of coordination, difficulty walking, frequent falls, dizziness, confusion, Slurred speech present, difficulty communicating thoughts, seizure-like activity or involuntary movements Endo: Denies: polyuria, polydipsia or tired all the time John/Lymph: Denies: easy bruising or easy bleeding PFSH ED PFSH: Medical History Alcohol use disorder, severe, dependence BRBPR (bright red blood per rectum) Generalized anxiety disorder GERD (gastroesophageal reflux disease) Head injury Osteoarthritis involving multiple joints on both sides of body Poverty Psychiatric care Repetitive strain injury of neck Severe dental caries Family History Father Diabetes started at age 72 Heart attack Sister Suicide overdose Sister Suicide Social History Smoking and tobacco status: never smoked Second hand smoke exposure: Yes Alcohol intake: current Alcohol intake frequency: 0-2 Drinks per Day Alcohol type: beer Adopted: No Caregiver/support person: No Lives independently: Yes Household members: friend(s) Marital status: Single Number of children: 1 Number of grandchildren: 1 Highest education level completed: 10th Grade Current occupational status: unemployed and disabled Current occupational exposures/hazards: No Pets and animals: Yes Pets & animals: cat(s) and dog(s) Leisure activites: other 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, 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, 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 Sexually active: No Current gender identity: Male Mary/Christian: None Financial difficulty paying for basics: Hard Physical Exam Const: COMMON NORMALS: no acute distress, patient oriented x3 and alert GENERAL APPEARANCE: cooperative ORIENTATION/CONSCIOUSNESS: Yes awake, Yes oriented to person, Yes oriented to place and Yes oriented to time HENMT: COMMON NORMALS: normocephalic and atraumatic HEAD & SCALP: normocephalic and atraumatic FACE & SINUS: normal facial exam MOUTH: Normal oral and palatal mucosa present THROAT: posterior oropharynx normal Eye: COMMON NORMALS: Equal, round and reactive pupils present, EOMs intact bilaterally, conjunctivae normal and no scleral icterus GENERAL EYE: appearance normal, both eyes and all related structures ALIGNMENT: Yes alignment normal PERIORBITAL: periorbital findings normal CONJUNCTIVA: Yes conjunctivae normal PUPIL: Yes Equal, round and reactive pupils present Neck/C-Spine: COMMON NORMALS: full ROM GENERAL: Yes normal visual inspection Lymph: LYMPHATIC: no lymphadenopathy noted Chest: COMMONS NORMALS: normal inspection of the chest Breast/axilla inspection: Yes no chest deformity, asymmetry, normal contours, no nodules, masses, tenderness Resp: COMMON NORMALS: normal respiratory effort, No retractions, No use of accessory muscles and clear to auscultation bilaterally EFFORT & INSPECTION: Yes able to speak in complete sentences and Yes symmetric chest movement AUSCULTATION: clear to auscultation bilaterally Cardio: COMMON NORMALS: regular rate, regular rhythm and Peripheral pulses 2+ throughout RATE: regular rate RHYTHM: regular rhythm PERIPHERAL PULSES: Peripheral pulses 2+ throughout GI: COMMON NORMALS: Normal to inspection, nondistended, normoactive bowel sounds present, Soft to palpation, non-tender and No hepatosplenomegaly present INSPECTION: Yes normal to inspection AUSCULTATION: Yes normoactive bowel sounds PALPATION: Yes Soft to palpation and Yes No hepatosplenomegaly present RECTAL EXAM: Yes deferred Extremity: COMMON NORMALS: normal to inspection NARRATIVE EXTREMITY EXAM: Left upper extremity: Skin is clean dry and intact Patient has full active range of motion of left shoulder Patient has no range of motion of the left elbow but is able to pronate and supinate to some degree Patient states he has pain with any motion Edema present Unable to identify landmarks. It is more swollen in the left elbow compared to the right Patient is able to extend wrist, give a thumbs up, make an okay sign abduct fingers and make a fist Patient does have difficulty with crossing his fingers Sensations intact to light touch at axillary, radial, median, ulnar nerve distribution GENERAL: Yes normal exam except as noted Neuro: COMMON NORMALS: patient oriented x3 SENSORIUM/ORIENTATION: Yes alert, Yes oriented to person, Yes oriented to place and Yes oriented to time CRANIAL NERVES: Yes CN normal except as noted Psych: COMMON NORMALS: mental status grossly normal, Normal thought process present, cooperative, activity/motor behavior normal, denies homicidal ideation and denies suicidal ideation THOUGHT PROCESS: Normal thought process present Skin: COMMON NORMALS: no rashes or lesions noted, no wounds and turgor normal GENERAL SKIN EXAM: no rashes or lesions noted and turgor normal Course Vital Signs: Vital signs: Vital Signs Temperature 98 F 09/04/22 12:15 Pulse Rate 68 09/04/22 12:15 Blood Pressure 167/86 09/04/22 12:15 Pulse Oximetry 96 09/04/22 12:15 Oxygen Delivery Me thod Room Air 09/04/22 12:15 MDM - Extremity (Nontraumatic) Medical Decision Making Frontal diagnosis includes fracture, effusion, dislocation, contusion, arthritis, joint arthrosis, joint hemarthrosis Patient was evaluated in the emergency department and underwent diagnostic imaging that included a CT of the left elbow. Imaging reveals questionable coronoid process fracture as well as pretty advanced osteoarthritis. Due to the questionable coronoid process fracture I have placed the patient in a posterior long-arm splint and sling. I have asked case management to refer to orthopedics here in [place]. Patient has been instructed to remain nonweightbearing. He is to use RICE?rest, ice, compression, elevation. He can use nonsteroidal anti-inflammatory drugs as well as Tylenol for pain relief Patient is to return to the emergency department for new concerning or worsening symptoms Should follow-up with orthopedics. He is to keep his splint clean and dry Lab Data Radiology Impressions Elbow CT 09/04/22 12:23 IMPRESSION: 1. Hypertrophic degenerative bony change noted about the left elbow. 2. Foci of ossifications are seen anterior laterally at the elbow which could indicate synovial osteochondromatosis or other chronic soft tissue ossification. 3. Suspicious appearance of the coronoid process of the ulna for fracture. Follow-up plain film studies. Discharge Plan Discharge Patient Disposition: Home Clinical Impression: Elbow pain, left, Fracture of coronoid process of left ulna Condition: Stable Prescriptions: No Action trazodone 150 mg tablet 150 mg PO BEDTIME Qty: 30 11RF fluoxetine 40 mg capsule 40 mg PO DAILY Qty: 30 11RF pantoprazole [Protonix] 40 mg tablet,delayed release (DR/EC) 40 mg PO BID 42 Days Qty: 84 0RF albuterol 90 mcg/actuation Aerosol 90 mcg INHALATION PRN PRN (Reason: Shortness Of Breath) Protonix 40 mg tablet,delayed release (DR/EC) 40 mg PO BID 42 Days Qty: 84 1RF Discharge Orders: Discharge ED (Routine); Ordered 09/04/22 Ordered By: Desean Schneider Referrals: Jimmy Meek MD [Primary Care Provider] - Discharge Diet: Advance as tolerated Discharge Activity: Resume usual activity Patient Instructions: Elbow Fracture (ED), Arthralgia (ED), Swollen Joint (ED), Opioid Safety, Pain Management Activity Restrictions/Additional Instructions: Please keep your splint clean and dry Do not remove Sling for comfort Orthopedic follow-up visit will be arranged. They should be reaching out to Tuesday I want you to use ice and elevate the elbow Anti-inflammatories like ibuprofen, naproxen, Aleve can be used as well as Tylenol. Again, you can use both Tylenol and ibuprofen to help with pain You are to remain nonweightbearing. This means no lifting pushing or pulling with the left arm Coding Level of Care Code ED Special Assets Officer for Manuel Matthew
--- NOTE | 2022-09-06 08:50 | DCPLANNER ---
Addendum entered by Rebeka Franco 09/15/22 08:24: Patient had a follow up appointment scheduled with ortho - patient did attend appointment. Addendum entered by Rebeka Franco 09/07/22 11:26: Patient has a follow up appointment scheduled for Tuesday, September 10, 2022 at 10:30 with Ean Jin at ortho. Original Note: marketing planning manager had message to schedule a follow up appointment for patient with ortho. marketing planning manager sent patients information to the front office staff at ortho. Patients information will be printed and reviewed. Clinic will call patient with appointment information.
== END 2022-09-04 15:30 | disposition home or self-care (01) ==
PROVIDERS: Emergency Provider Nurse Practitioner; PCP Family Medicine
DX: S52.045A Nondisplaced fracture of coronoid process of left ulna, initial encounter for closed fracture (principal); Z77.22 Contact with and (suspected) exposure to environmental tobacco smoke (acute) (chronic); W22.8XXA Striking against or struck by other objects, initial encounter
CPT/HCPCS: 29105; 73200; 99284

== ENCOUNTER → 2022-09-10 10:51 | Outpatient (BNVA) | payer MEDICAID, SELFPAY ==
[2021-12-10 11:47] VITALS: BP 108/67; BMI 35.1
== END ==
PROVIDERS: PCP Family Medicine; Referring Provider Nurse Practitioner; Visit Provider Nurse Practitioner Family
DX: M19.022 Primary osteoarthritis, left elbow (principal)
CPT/HCPCS: 73070; 99214

== ENCOUNTER → 2022-10-05 10:10 | Outpatient (BNVA) | payer MEDICAID, SELFPAY ==
[2021-12-10 11:47] VITALS: BP 108/67; BMI 35.1
== END ==
PROVIDERS: PCP Family Medicine; Visit Provider Nurse Practitioner Family
DX: M19.022 Primary osteoarthritis, left elbow (principal)
CPT/HCPCS: 73080; 99213

== ENCOUNTER 2023-07-22 09:32 | Outpatient (CLI) | payer OTHER, SELFPAY ==
[2021-12-10 11:47] VITALS: BP 108/67; BMI 35.1
--- NOTE | 2023-07-22 09:43 | XR_ITS ---
WS: [id number] Exam: XR knee RT 1-2V [id number] Date/Time of Exam: 07/22/2023 10:08 AM Reason For Exam: PAIN Comparison 12/04/2019. No fracture or dislocation. Joint compartments are relatively well-maintained. Normal soft tissues. N o joint effusion. IMPRESSION: 1. No fracture or other significant finding.
--- NOTE | 2023-07-22 09:43 | XR_ITS ---
WS: [id number] Comparison 03/24/2020. Mild degenerative changes in the IP and metacarpal phalangeal joints. No fracture. Old fracture defor mity of the fifth metacarpal. No soft tissue foreign bodies. IMPRESSION: 1. No fracture or dislocation. 2. Mild degenerative changes.
--- NOTE | 2023-07-22 09:43 | XR_ITS ---
WS: [id number] Exam: XR lumbar spine 2-3V* [id number] Date/Time of Exam: 07/22/2023 10:08 AM Reason For Exam: PAIN Comparison 12/04/2019. No acute fracture or dislocation. Mild spondylosis. Disc bases are preserved. Posterior elements are intact. IMPRESSION: 1. Slight spondylosis otherwise unremarkable lumbar spine study.
== END 2023-07-22 09:33 | disposition home or self-care (01) ==
LOC: RAD 09:36
PROVIDERS: PCP Family Medicine; Visit Provider Dermatology
DX: M25.561 Pain in right knee (principal); M54.50 Low back pain, unspecified; M25.541 Pain in joints of right hand
CPT/HCPCS: 72100; 73120; 73560

== ENCOUNTER 2023-11-18 09:56 | Outpatient (CLI) | payer OTHER, SELFPAY ==
[2021-12-10 11:47] VITALS: BP 108/67; BMI 35.1
--- NOTE | 2023-11-18 10:02 | XR_ITS ---
WS: [id number] Exam: XR hip LT 2-3V wo/w pel* [id number] Date/Time of Exam: 11/18/2023 10:04 AM Reason For Exam: ENCOUNTER FOR DISABILITY DETERMINATION No acute fracture or dislocation. Minimal degenerative change of the acetabulum. The joint compartmen t is preserved. Normal soft tissues. XR/XR hip LT 2-3V wo/w pel* [id number] IMPRESSION: 1. Mild degenerative change.
== END 2023-11-18 09:57 | disposition home or self-care (01) ==
LOC: RAD 09:58
PROVIDERS: PCP Family Medicine; Visit Provider Dermatology
DX: Z02.71 Encounter for disability determination (principal)
CPT/HCPCS: 73502

== ENCOUNTER 2024-07-16 08:35 | Outpatient (CLI) | payer MEDICAID, SELFPAY ==
[2021-12-10 11:47] VITALS: BP 108/67; BMI 35.1
--- NOTE | 2024-07-16 08:42 | CT_ITS ---
WS: [id number] CT TEMPORAL BONES TECHNIQUE: Noncontrast CT of the temporal bones with coronal and sagittal reformatted images. CLINICAL INFORMATION: ACUTE OTITIS EXTERNA COMPARISON: None. DLP: 331.[address] scans at [facility] use at least one of these dose optimization techniques: automated exposure control; mA and/or kV adjustment per patient size (includes targeted exams where dose is matched to clinical indication); or iterative reconstruction. FINDINGS: Mild mucosal thickening in the paranasal sinuses. Partial opacification of the ethmoid air cells. Cavernous carotid calcification. RIGHT: Mastoid air cells are well aerated. Normal external auditory canal. Ossicles are normal in appearance. Middle ear is well aerated. Normal tegmen tympani. Semicircular canals and cochlea are normal in appearance. Prussak's space is normal. Normal inner ear structures. Normal vestibular aqueduct. Facial nerve recess is normal. LEFT: Soft tissue thickening along the LEFT middle ear at the epitympanum. Normal ossicles and scutum. Partial opacification LEFT mastoid air cells. Shallow subcutaneous calcifications along the LEFT distal EAC and external ear. Normal tegmen tympani. Semicircular canals and cochlea are normal in appearance. Prussak's space is normal. Normal inner ear structures. Normal vestibular aqueduct. Facial nerve recess is normal. Visualized intracranial contents and posterior fossa are normal. CT/CT temporal bone wo con* [id number] IMPRESSION: 1. Mild soft tissue thickening in the LEFT middle ear mainly involving the epi tympanum. This is likely infectious or inflammatory. No evidence of ossicular o r scutal erosion. 2. Mild mucosal thickening LEFT mastoid air cells. 3. RIGHT mastoid air cells are well aerated. 4. Otherwise normal inner ear structures bilaterally. 5. Subcutaneous calcifications LEFT ear. 6. Mild mucosal thickening in the paranasal sinuses.
== END 2024-07-16 08:36 | disposition home or self-care (01) ==
PROVIDERS: PCP Family Medicine; Visit Provider Specialist
DX: H60.339 Swimmer's ear, unspecified ear (principal); R93.0 Abnormal findings on diagnostic imaging of skull and head, not elsewhere classified; I65.29 Occlusion and stenosis of unspecified carotid artery
CPT/HCPCS: 70480

== ENCOUNTER → 2024-10-02 10:06 | Outpatient (BNVA) | payer OTHER, SELFPAY ==
[2021-12-10 11:47] VITALS: BP 108/67; BMI 35.1
== END ==
PROVIDERS: PCP Family Medicine; Visit Provider Psychiatry & Neurology Psychiatry
DX: Z79.899 Other long term (current) drug therapy (principal); F10.20 Alcohol dependence, uncomplicated
CPT/HCPCS: 80306

== ENCOUNTER 2025-01-28 14:21 | Emergency (ER) | payer MEDICAID, SELFPAY ==
[2021-12-10 11:47] VITALS: BP 108/67; BMI 35.1
[2025-01-28] VITALS (7 sets, daily range): BP systolic 135–158; BP diastolic 84–101; PULSE 57–93; RESP 16–24; TEMP 36.4; O2SAT 95–100; BMI 34.4
--- NOTE | 2025-01-28 14:25 | ECG_ITS ---
[facility] Test Date: 2025-01-28 Pat Name: Jose Rivera Department: Room: Gender: Male Lead Operator: : 1965 Requested By: Jael Mackenzie Order Number: [id number] Hampton MD: Ritesh Cormier M.D. Measurements Intervals [place] Rate: 82 P: 33 [place]: 151 QRS: 67 QRSD: 93 T: 57 QT: 410 QTc: Interpretive Statements SINUS RHYTHM Compared to ECG 10/07/2021 23:22:53 No significant change Electronically Signed On 01-30-2025 20:37:12 CDT by Ritesh Cormier M.D. [email or web address]
--- NOTE | 2025-01-28 14:27 | W.ED.ALCOHOL ---
HPI - Alcohol General: Chief Complaint: Alcohol Stated Complaint: withdrawal with vomiting Time Seen by Provider: 01/28/25 14:24 History of Present Illness: 59-year-old male with a history of alcohol abuse, GERD, arthritis, COPD and anxiety who presents emergency room by ambulance with intractable vomiting, shaking and presumed withdrawal symptoms. He had been on a fairly big li according to EMS and stopped drinking abruptly. . He did drink a half a beer earlier this morning to try to help with symptoms but has been vomiting since. Related Data Home Medications ?Medication ?Instructions ?Recorded ?Confirmed naproxen 500 mg tablet 500 mg PO TID 08/25/23 01/28/25 carbamazepine 200 mg tablet 200 mg PO Q12H 12/12/24 01/28/25 (Epitol) clonidine HCl 0.1 mg tablet 0.1 mg PO BID 12/12/24 01/28/25 ondansetron HCl 4 mg tablet 4 mg PO BID PRN Nausea And Vomiting 12/12/24 01/28/25 Previous Rx's ?Medication ?Instructions ?Recorded fluoxetine 60 mg tablet 60 mg PO DAILY #30 tabs 06/28/24 trazodone 150 mg tablet 150 mg PO BEDTIME #30 tabs 06/28/24 lorazepam 1 mg tablet (Ativan) 1 mg PO BID PRN withdrawal 01/28/25 symptoms #20 tabs ondansetron 8 mg disintegrating 8 mg PO Q6H #14 tabs 01/28/25 tablet Allergies Allergy/AdvReac Type Severity Reaction Status Date / Time No Known Allergies Allergy Verified 12/12/24 08:51 [facility] ED [facility]: Medical History (Updated 01/28/25 @ 16:01 by Jael Roberson MD) BRBPR (bright red blood per rectum) Head injury GERD (gastroesophageal reflux disease) Severe dental caries Osteoarthritis involving multiple joints on both sides of body Repetitive strain injury of neck Alcohol use disorder, severe, dependence Psychiatric care Poverty Generalized anxiety disorder Family History Father Diabetes started at age 72 Heart attack Sister Suicide overdose Sister Suicide Social History Smoking and tobacco/nicotine status: never used tobacco/nicotine Second hand smoke exposure: Yes Alcohol intake: current Alcohol intake frequency: 0-2 Drinks per Day Alcohol type: beer Substance/Drug Use: never Adopted: No Caregiver/support person: No Lives independently: Yes Household members: friend(s) Marital status: Single Number of children: 1 Number of grandchildren: 1 Highest education level completed: 10th Grade Current occupational status: unemployed and disabled Current occupation: disability Current occupational exposures/hazards: No Pets and animals: Yes Pets & animals: cat(s) and dog(s) Leisure activites: other 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 Head: Normocephalic, atraumatic. Neck: Supple, trachea midline. Eye: Extraocular movements are intact. Ears, nose, mouth and throat: mucosa moist. Cardiovascular: Regular, Normal peripheral perfusion. Respiratory: Lungs are clear to auscultation, respirations are non-labored, breath sounds are equal, Symmetrical chest wall expansion. Gastrointestinal: Soft, Nontender, Non distended Musculoskeletal: Normal ROM, no deformity. Neurological: Alert and oriented, No focal neurological deficit observed. Psychiatric: Cooperative, appropriate mood & affect. Course Vital Signs: Vital signs: Vital Signs Temperature 97.5 F L 01/28/25 14:31 Pulse Rate 75 01/28/25 17:00 Respiratory Rate 18 01/28/25 17:00 Blood Pressure 145/95 01/28/25 17:00 Pulse Oximetry 95 01/28/25 17:00 Oxygen Delivery Me thod Room Air 01/28/25 17:00 Oxygen Flow Rate 2 01/28/25 15:17 MDM - Alcohol Medical Decision Making Medical decision making: Differential diagnosis including but not limited to and based on the above HPI, review of systems and physical exam: In this patient with alcohol abuse and alcohol withdrawal would like to see what his alcohol level actually is. Drug screen is appropriate. So would have concern for renal failure or liver damage. Also pancreatitis would be of concern with him vomiting. Orders placed to evaluate differential diagnosis based on the above differential, HPI and physical exam Lab Review: Laboratory results were reviewed and interpreted by myself the emergency room physician. No leukocytosis. No anemia. No renal failure. Alcohol level is negative. Liver enzymes are normal. Platelets are fairly normal. Lipase is negative. I reviewed the patient's medical record. 59-year-old male with a history of alcohol abuse, GERD, arthritis, COPD and anxiety Reexamination: I discussed with the patient why he had stopped drinking. He says that he wants to quit. He actually gets medications to help with his withdrawal from Dr. Ferguson he tells me. He says he can get that. He does not want to be admitted as an inpatient and his vitals have been normal throughout and tremors have improved. He has not had any further vomiting. Assessment and plan: Alcohol abuse Intractable vomiting Withdrawal symptoms Dehydration ?IV fluids and IV Zofran in the emergency room. Also IV Ativan. - Discharged home - Discussed plan with patient. Answered any questions. - Evaluation and treatment of this problem were appropriate in the emergency setting. Lab Data 01/28/25 15:19 01/28/25 15:19 Laboratory Results WBC 7.00 10^3/uL (3.29-11.43) 01/28/25 15:19 RBC 4.20 10^6/uL (3.85-5.65) 01/28/25 15:19 Hgb 12.80 g/dL (11.27-16.99) 01/28/25 15:19 Hct 38.6 % (37-53) 01/28/25 15:19 MCV 91.9 fl (82-101) 01/28/25 15:19 MCH 30.5 pg (27-33) 01/28/25 15:19 MCHC 33.2 g/dL (30-55) 01/28/25 15:19 RDW 14.9 % (12.1-15.1) 01/28/25 15:19 Plt Count 177 10^3/cmm (157-399) 01/28/25 15:19 MPV 9.6 fL (7.4-10.4) 01/28/25 15:19 Neut % (Auto) 87.1 % 01/28/25 15:19 Lymph % (Auto) 8.0 % 01/28/25 15:19 [place] % (Auto) 3.9 % 01/28/25 15:19 Eos % (Auto) 0.1 % 01/28/25 15:19 Baso % (Auto) 0.6 % 01/28/25 15:19 Neut # (Auto) 6.10 10^3/uL (1.8-7.7) 01/28/25 15:19 Lymph # (Auto) 0.6 10^3/uL (0.8-4.8) L 01/28/25 15:19 [place] # (Auto) 0.3 10^3/uL (0.2-0.9) 01/28/25 15:19 Eos # (Auto) 0.0 10^3/uL (0.0-0.8) 01/28/25 15:19 Baso # (Auto) 0.0 10^3/uL (0.0-0.1) 01/28/25 15:19 Nucleated RBC % (auto) 0 % 01/28/25 15:19 Nucleated RBCs # 0.0 /100WBC 01/28/25 15:19 Sodium 138 mmol/L (136-145) 01/28/25 15:19 Potassium 3.8 mmol/L (3.5-5.1) 01/28/25 15:19 Chloride 101 mmol/L (98-107) 01/28/25 15:19 Carbon Dioxide 22 mmol/L (22-29) 01/28/25 15:19 Anion Gap 18.8 (5-19) 01/28/25 15:19 BUN 7 mg/dL (6-20) 01/28/25 15:19 Creatinine 0.6 mg/dL (0.7-1.2) L 01/28/25 15:19 GFR Calculation 138.9 mL/min (90-130) H 01/28/25 15:19 Glucose 111 mg/dL (65-115) 01/28/25 15:19 Calculated Osmolality 285 mOsm/kg (285-295) 01/28/25 15:19 Calcium 8.5 mg/dL (8.5-10.5) 01/28/25 15:19 Total Bilirubin 1.1 mg/dL (0.15-1.2) 01/28/25 15:19 AST 53 U/L (0-40) H 01/28/25 15:19 ALT 30 U/L (0-41) 01/28/25 15:19 Alkaline Phosphatase 92 U/L (40-130) 01/28/25 15:19 Total Protein 7.2 g/dL (6.6-8.7) 01/28/25 15:19 Albumin 3.7 g/dL (3.5-5.2) 01/28/25 15:19 Globulin 3.5 g/dL (1.3-4.6) 01/28/25 15:19 Lipase 29 U/L (13-60) 01/28/25 15:19 TSH 1.24 uIU/mL (0.27-4.20) 01/28/25 15:19 Urine Color Yellow (Yellow) 01/28/25 15:32 Urine Appearance Clear (CLEAR) 01/28/25 15:32 Urine pH >=9.0 (5-7) A 01/28/25 15:32 Ur Specific Boss 1.020 (1.005-1.030) 01/28/25 15:32 Urine Protein 1+ (Negative) A 01/28/25 15:32 Urine Glucose (UA) Negative (Normal) 01/28/25 15:32 Urine Ketones 1+ (Negative) H 01/28/25 15:32 Urine Blood Negative (Negative) 01/28/25 15:32 Urine Nitrate Negative (Negative) 01/28/25 15:32 Urine Bilirubin Negative (Negative) 01/28/25 15:32 Urine Urobilinogen 2.0 mg/dL (Negative) H 01/28/25 15:32 Ur Leukocyte Esterase Negative (Negative) 01/28/25 15:32 Urine RBC 0-2 /hpf (0-2) 01/28/25 15:32 Urine WBC 0-5 /hpf (0-5) 01/28/25 15:32 Ur Squamous Epith Cells 0-5 /hpf (0-5) 01/28/25 15:32 Amorphous Sediment Not Reportable 01/28/25 15:32 Urine Bacteria None seen /hpf (NONE) 01/28/25 15:32 Hyaline Casts 2.87 /lpf 01/28/25 15:32 Salicylates < 0.3 mg/dL (3-10) L 01/28/25 15:19 Urine Opiates Screen Negative ng/mL (Negative) 01/28/25 15:32 Acetaminophen < 5.0 ug/mL (10-30) L 01/28/25 15:19 Ur Barbiturates Screen Negative ng/mL (Negative) 01/28/25 15:32 Ur Phencyclidine Scrn Negative ng/mL (Negative) 01/28/25 15:32 Ur Amphetamines Screen Negative ng/mL (Negative) 01/28/25 15:32 U Benzodiazepines Scrn Negative ng/mL (Negative) 01/28/25 15:32 Urine Cocaine Screen Negative ng/mL (Negative) 01/28/25 15:32 U Marijuana (THC) Screen Negative ng/mL (Negative) 01/28/25 15:32 Ethyl Alcohol < 10 mg/dL (0-10) 01/28/25 15:19 No radiology studies performed this visit Discharge Plan Discharge Patient Disposition: Home Clinical Impression: Alcohol withdrawal syndrome, Alcohol use disorder, severe, dependence, Dehydration, Vomiting Condition: Stable Prescriptions: New lorazepam [Ativan] 1 mg tablet 1 mg PO BID PRN (Reason: withdrawal symptoms) Qty: 20 0RF ondansetron 8 mg tablet,disintegrating 8 mg PO Q6H Qty: 14 0RF Rx Instructions: Take 1/2-1 tab every 6 hours as needed for nausea and vomiting No Action naproxen 500 mg tablet 500 mg PO TID fluoxetine 60 mg tablet 60 mg PO DAILY Qty: 30 11RF trazodone 150 mg tablet 150 mg PO BEDTIME Qty: 30 11RF clonidine HCl 0.1 mg tablet 0.1 mg PO BID ondansetron HCl 4 mg tablet 4 mg PO BID PRN (Reason: Nausea And Vomiting) carbamazepine [Epitol] 200 mg tablet 200 mg PO Q12H Discharge Orders: Discharge ED (Routine); Ordered 01/28/25 Ordered By: Jael Roberson Referrals: Jimmy Meek MD [Primary Care Provider, Family Practice] Discharge Diet: Usual diet Discharge Activity: Increase activity as tolerated Patient Instructions: Opioid Safety, Pain Management, Patient Portal & Parvez Instructions Activity Restrictions/Additional Instructions: Please follow-up with your provider as soon as possible to help you treat your withdrawal symptoms. And to help you stop drinking alcohol. Thank you for choosing [facility] for your healthcare needs today. You have been screened and evaluated and felt safe for discharge. Health conditions do change or evolve sometimes and as such it is important that you follow up with your Primary Doctor to be re checked, 3-5 days is a general good time frame for follow up. You are always welcome to return to the ED for re assessment if your symptoms are worsening or you have new concerns Print Language: Estonian Coding Level of Care Code ED Loan Documentation Specialist for Manuel Matthew
--- NOTE | 2025-01-28 14:39 | PC.NURSE ---
PT DIAPHORETIC UPON ARRIVAL. STATES ITS HARD TO BREATH. VITALS STABLE AND REPORTED TO DR. WHALEN. PT HAS MED LIST WITH HIM. PT HAS SCRIPTS FOR NAPROXEN, CLONIDINE 0.1, TRAZADONE, FLUOXETINE HCL, AND CARBAMAZEPINE. PT SEES [facility].
[2025-01-28] MEDS: LORazepam 1 MG/0.5 ML injection 2 MG IVP (14:53)
[2025-01-28 15:25] LABS: Hematocrit 38.6 % (37-53); Hemoglobin 12.80 g/dL (11.27-16.99); Mean Corpuscular HGB Conc 33.2 g/dL (30-55); Mean Corpuscular Hemoglobin 30.5 pg (27-33); Mean Corpuscular Volume 91.9 fl (82-101); Nucleated Red Blood Cells % 0 %; Platelet Count 177 10^3/cmm (157-399); Red Blood Count 4.20 10^6/uL (3.85-5.65); White Blood Count 7.00 10^3/uL (3.29-11.43)
[2025-01-28 15:54] LABS: Alanine Aminotransferase 30 U/L (0-41); Albumin Level 3.7 g/dL (3.5-5.2); Alkaline Phosphatase 92 U/L (40-130); Anion Gap 18.8 (5-19); Aspartate Amino Transferase 53 U/L (0-40); Blood Urea Nitrogen 7 mg/dL (6-20); Calcium 8.5 mg/dL (8.5-10.5); Carbon Dioxide 22 mmol/L (22-29); Chloride 101 mmol/L (98-107); Creatinine Clr Calc Pharmacy 152.8891; Globulin 3.5 g/dL (1.3-4.6); Glucose 111 mg/dL (65-115); Osmolality Calculated 285 mOsm/kg (285-295); Potassium 3.8 mmol/L (3.5-5.1); Sodium 138 mmol/L (136-145); Thyroid Stimulating Hormone 1.24 uIU/mL (0.27-4.20); Total Protein 7.2 g/dL (6.6-8.7)
[2025-01-28 15:58] LABS: Acetaminophen < 5.0 ug/mL (10-30); Alcohol Level < 10 mg/dL (0-10); Salicylate < 0.3 mg/dL (3-10)
[2025-01-28 16:13] LABS: Glucose Urine UA Negative (Normal); Nitrate Urine Negative (Negative); Specific Gravity, Urine 1.020 (1.005-1.030)
[2025-01-28 16:18] LABS: Add Urine Microscopic? YES
[2025-01-28 16:19] LABS: PCP Screen Urine Negative (Negative)
[2025-01-28 17:14] LABS: Lipase 29 U/L (13-60)
== END 2025-01-28 17:36 | disposition home or self-care (01) ==
PROVIDERS: Emergency Provider Emergency Medicine; PCP Family Medicine
DX: F10.239 Alcohol dependence with withdrawal, unspecified (principal); E86.0 Dehydration; R11.10 Vomiting, unspecified; J44.9 Chronic obstructive pulmonary disease, unspecified
CPT/HCPCS: 36415; 80053; 80306; 80307; 81001; 83690; 84443; 85025; 93005; 96374; 99284; J2060; J7030